=== PATIENT | male | born 1955 | race Hispanic/Latino ===

== ENCOUNTER 2023-09-26 10:39 | Emergency (ER) | payer SELFPAY ==
[~2023-09-26] VITALS: Ht 165.1 cm; Wt 80.0 kg
[2023-09-26 10:54] VITALS: BP 148/83
[2023-09-26 11:00] VITALS: BP 143/83
[2023-09-26 12:01] VITALS: BP 127/73
[2023-09-26 13:00] VITALS: BP 152/79
[2023-09-26] MEDS ORDERED: BACTRIM DS1 TAB PO (13:50)
[2023-09-26 14:00] VITALS: BP 152/79
== END 2023-09-26 14:07 | disposition home or self-care (01) | DRG 603 ==
LOC: ED 10:39
PROC: 0H96XZZ Drainage of Back Skin, External Approach (ICD-10-PCS; principal; 2023-09-26)
DX: L02.212 Cutaneous abscess of back [any part, except buttock and flank] (principal); I10 Essential (primary) hypertension; E11.9 Type 2 diabetes mellitus without complications

== ENCOUNTER 2023-09-28 11:53 | Emergency (ER) | payer SELFPAY ==
[~2023-09-28] VITALS: Ht 165.1 cm; Wt 80.0 kg
[~2023-09-28 11:53] MED LIST: BACTRIM DS1 TAB PO
[2023-09-28 12:09] VITALS: BP 136/74
[2023-09-28 12:16] VITALS: BP 139/73
[2023-09-28 12:30] VITALS: BP 117/68
[2023-09-28 12:45] VITALS: BP 143/84
[2023-09-28 13:22] VITALS: BP 143/84
== END 2023-09-28 13:30 | disposition home or self-care (01) | DRG 951 ==
LOC: ED 11:53
DX: Z48.01 Encounter for change or removal of surgical wound dressing (principal)

== ENCOUNTER 2024-02-29 08:12 | Emergency (ER) | payer OTHER ==
[2024-02-29] VITALS (9 sets, daily range): BP systolic 103–146; BP diastolic 62–87
[~2024-02-29] VITALS: Ht 165.1 cm; Wt 74.8 kg
== END 2024-02-29 10:18 | disposition home or self-care (01) | DRG 156 ==
LOC: ED 08:12
PROC: 3E1B78Z Irrigation of Ear using Irrigating Substance, Via Natural or Artificial Opening (ICD-10-PCS; principal; 2024-02-29)
DX: H61.22 Impacted cerumen, left ear (principal); I10 Essential (primary) hypertension; E11.9 Type 2 diabetes mellitus without complications